=== PATIENT | female | born 1970 | race Two or more races ===

== ENCOUNTER 2023-08-23 12:06 | Emergency (ER) | payer OTHER ==
[~2023-08-23] VITALS: Ht 160 cm; Wt 70.3 kg
[2023-08-23 12:31] VITALS: BP 140/71; TEMP 98.2; O2SAT 100
[2023-08-23] MEDS ORDERED: NEOMY SULF/BACITRA/POLYMYXIN B 3.5 GM TUBE ONE (12:56)
[2023-08-23] MEDS ORDERED: NEOMY SULF/BACITRAC ZN/POLY 15 GM TUBE TP SCH (13:00)
[2023-08-23] MEDS ORDERED: MUPI22OI2 TP (14:07)
== END 2023-08-23 14:11 | disposition home or self-care (01) ==
LOC: ER 12:06
DX: S50.811D Abrasion of right forearm, subsequent encounter (principal); Z79.899 Other long term (current) drug therapy; Z88.0 Allergy status to penicillin; X58.XXXD Exposure to other specified factors, subsequent encounter